=== PATIENT | female | born 1960 | race Caucasian/White ===

== ENCOUNTER 2016-03-14 09:40 | Day surgery (SDC) | payer OTHER ==
[~2016-03-14] VITALS: Ht 162.6 cm; Wt 78.0 kg
[~2016-03-14 09:40] MED LIST: 0.9% Sodium Chloride 1,000 ML IV SCH; CHOL200047 PO; GLUC100016 PO; MULT1CAP33 PO; Sodium Chloride LOK Flush 10 mL Syringe IV PRN; fentaNYL-PF 50 mCg/mL 2 mL Inj IVPUSH PRN
[2016-03-14 09:57] VITALS: BP 124/81; PULSE 64; RESP 16; O2SAT 97
[2016-03-14 11:23] VITALS: BP 129/77; PULSE 59; RESP 16; O2SAT 100
[2016-03-14 11:33] VITALS: BP 118/68; PULSE 97; RESP 16; O2SAT 100
[2016-03-14 11:38] VITALS: BP 120/81; PULSE 74; RESP 16; O2SAT 100
--- NOTE | 2016-03-14 13:21 | ENDO ---
[address] [address] ENDOSCOPY PROCEDURE PATIENT: JESÚS MAXWELL : 1960 MR#: [id number] ADMIT: 03/14/2016 JOB ID: [id number] DATE OF SERVICE: 03/14/2016 PRIMARY PROVIDER: Amira Rachel MD. PROCEDURE: Colonoscopy with hot snare polypectomy and cold forceps polypectomy. INDICATIONS: A 55-year-old female who reports for colon cancer screening. EQUIPMENT: [employer]. SEDATION: 1. Versed 3 mg. 2. Fentanyl 62.5 mcg. COMPLICATIONS: None identified. BOWEL PREPARATION: Adequate. PROCEDURE INFORMATION: After the risks and benefits were explained, written and verbal informed consent was obtained. The patient was brought into the endoscopy suite and placed into the left lateral decubitus position. Sedation was achieved using the above-stated medications with the addition of oxygen via nasal cannula. A digital rectal examination was accomplished. Mild internal hemorrhoids noted. No other significant pathology. The scope was introduced into the rectum and advanced to the cecum as identified by the appendiceal orifice and ileocecal valve. The scope was slowly withdrawn to carefully examine the mucosa for any defects or lesions. Retroflexed views were accomplished in the rectum. The colon was decompressed. The scope removed from the patient who tolerated the procedure well. FINDINGS: In the left colon there were two polyps removed. One was approximately 5-6 mm and hot snare was employed. The other one was quite diminutive and cold forceps was utilized. Retroflexed views disclosed moderate internal hemorrhoids with hypertrophied anal papillae. ENDOSCOPIC DIAGNOSES: 1. Colon polyps. 2. Hemorrhoids. RECOMMENDATIONS: 1. Await histopathology. 2. Repeat colonoscopy in five years.
--- NOTE | 2016-03-15 14:11 | PATH ---
SURGICAL PATHOLOGY Attending Physician:Paula June CASE STATUS: Signed Out PATIENT NAME: JESÚS MAXWELL PID: [id number] : 1960 DATE COLLECTED:03/14/2016 21:55 SPECIMEN: Colon, Biopsy CLINICAL HISTORY: 1). DESCENDING COLON POLYPS FINAL DIAGNOSIS: 1.DESCENDING COLON POLYPS: TUBULAR ADENOMA INVOLVING BOTH BIOPSY FRAGMENTS. ICD10 CODE D12.4 GROSS DESCRIPTION: The specimen is received in one formalin filled container labeled with the patient's name, sublabeled "descending colon polyps" and consists of 2 portions of tissue which aggregate to 0.5 x 0.5 x 0.4 CM. The specimen is entirely submitted in one cassette. 03/14/2016 DAC MICRO DESCRIPTION: See diagnosis. ICD-9 CODES: CPT CODES: 1: 89057 Electronically Signed Out Vik Veliz MD [facility] [address], [place] [address] Technical component performed at [facility], [address] [place] [address] Ave[address], [place], [address]
== END 2016-03-14 23:59 | disposition home or self-care (01) ==
LOC: END 09:40
PROVIDERS: ATTEND Internal Medicine Gastroenterology
DX: Z12.11 Encounter for screening for malignant neoplasm of colon (principal); D12.4 Benign neoplasm of descending colon; K64.8 Other hemorrhoids; K62.89 Other specified diseases of anus and rectum; N80.9 Endometriosis, unspecified; N95.2 Postmenopausal atrophic vaginitis
CPT/HCPCS: 45380; 45385; J2250; J7030